=== PATIENT | female | born 1990 | race American Indian/Alaskan Native ===

== ENCOUNTER 2016-09-03 03:06 | Inpatient (IN) | payer OTHER ==
[~2016-09-03] VITALS: Ht 162.6 cm; Wt 80.0 kg
[2016-09-03] MEDS ORDERED: PRENATAL VITAM1 EACH PO (07:19)
--- NOTE | 2016-09-03 09:12 | NUR ---
09/03/16 0912 Nayeli Woodall 0816 PATIENT ARRIVES TO ROOM 106 POST , AWAKE, ALERT AND ORIENTED X3. RESP EVEN AND UNLABORED. DENIES PAIN OR NAUSEA. 0900 PATIENT HOLDING BABY WITHOUT DIFFICULTY. FAMILY AT BEDSIDE. PATIENT DENIES NEEDS.
--- NOTE | 2016-09-04 09:03 | PR ---
[facility] [address] [place], [place] [address] Signed PP Progress Notes Datetime Report Generated by LINDSAY: 09/04/2016 09:03 SUBJECTIVE: [id number] Pain: Within normal limits Nausea/Vomiting: Denies Flatus: Yes Vital Signs: [id number] Vital Signs: Reviewed; Within Normal Limits EXAM: [id number] Cardiovascular: Normal Respiratory: Normal Abdomen/Uterus: Abnormal Lochia: Normal Vulva/Perineum: Not Done Breasts: Not Done CVA Tenderness: Not Done Extremities: Normal Incision: Normal Progress: Normal Exam Comments: Abdomen with active BS. Fundus firm, NT @ U-1. H/H 9/27.4, WBC 10.9, plat 247k IMPRESSION/PLAN/PROCEDURES: [id number] Impression: Normal progression Plan: Continue present management Other Plans: increase ambulation, shower Procedures: None Progress Notes: Doing well. Will increase ambulation. Signing Physician: Rubi Coronel MD CC: *Electronically Signed* 09/04/16 0903 RUBI CORONEL MD PATIENT NAME: QUANG SCHWAB PROGRESS NOTE DATE OF : 86 PHYSICIAN: RUBI CORONEL MD RPT #: [id number] REPORT IS CONFIDENTIAL AND NOT TO BE RELEASED WITHOUT AUTHORIZATION
--- NOTE | 2016-09-06 07:09 | PR ---
[facility] [address] [facility] [address] [place], [place] [address] Signed PP Progress Notes Datetime Report Generated by LINDSAY: 09/06/2016 07:08 SUBJECTIVE: [id number] Pain: Within normal limits Nausea/Vomiting: Denies Flatus: Yes Vital Signs: [id number] Vital Signs: Reviewed; Within Normal Limits EXAM: [id number] Cardiovascular: Not Done Respiratory: Not Done Abdomen/Uterus: Abnormal Lochia: Normal Vulva/Perineum: Not Done Breasts: Not Done CVA Tenderness: Not Done Extremities: Normal Incision: Normal Progress: Not Applicable Exam Comments: Abdomen with active BS. Fundus firm, NT @ U-1. IMPRESSION/PLAN/PROCEDURES: [id number] Impression: Normal progression Plan: Remove shea; Discharge Other Plans: increase ambulation, shower Procedures: None Progress Notes: Doing well. She is ready for D/C back to [facility]. Signing Physician: Rubi Coronel MD CC: *Electronically Signed* 09/06/16 0708 RUBI CORONEL MD PATIENT NAME: QUANG SCHWAB PROGRESS NOTE DATE OF : 86 PHYSICIAN: RUBI CORONEL MD RPT #: [id number] REPORT IS CONFIDENTIAL AND NOT TO BE RELEASED WITHOUT AUTHORIZATION
== END 2016-09-06 11:50 | disposition home or self-care (01) | DRG 765 ==
LOC: FBCO 03:06 → FBC 05:35 → MS 09-05 17:15 → FBC 09-06 11:50
PROVIDERS: ADMIT Obstetrics & Gynecology
PROC: 10D00Z1 Extraction of Products of Conception, Low, Open Approach (ICD-10-PCS; principal; 2016-09-03 07:19)
DX: O32.8XX0 Maternal care for other malpresentation of fetus, not applicable or unspecified (principal); O99.324 Drug use complicating childbirth; O99.824 Streptococcus B carrier state complicating childbirth; F15.90 Other stimulant use, unspecified, uncomplicated; Z3A.39 39 weeks gestation of pregnancy; Z37.0 Single live birth
CPT/HCPCS: 01961; 36415; 59025; 59412; 82803; 85027; 99213; C1763; J0690; J1100; J1200; J1644; J1885; J2274; J2300; J2370; J2405; J2540; J2590; J3010; J3105; J7120